=== PATIENT | male | born 1945 | race Caucasian/White ===

== ENCOUNTER 2023-09-13 11:43 | Emergency (ER) | payer MEDICARE, SELFPAY ==
[2023-09-13 12:03] VITALS: BP 95/60
[2023-09-13 12:49] LABS: ALT (SGPT) 43 U/L (0-50); AST (SGOT) 48 U/L (17-59); Albumin 4.2 g/dl (3.5-5.0); Alkaline Phosphatase 28 U/L (38-126); Blood Urea Nitrogen 13 mg/dl (9-20); Calcium 9.1 mg/dl (8.4-10.2); Carbon Dioxide 25 mmol/L (22-30); Chloride 95 mmol/L (98-107); Glucose 91 mg/dl (70-99); Potassium 5.2 mmol/L (3.5-5.1); Sodium 128 mmol/L (135-145); Total Bilirubin 0.9 mg/dl (0.2-1.3); Total Protein 6.9 g/dl (6.3-8.2); eGFR > 60.00
[2023-09-13 13:56] LABS: Urine Albumin Trace (Neg - Trace); Urine Bilirubin Negative (Negative); Urine Character Clear (Clear); Urine Color Yellow; Urine Glucose Negative (Negative); Urine Ketone 2+ (Negative); Urine Leukocyte Negative (Negative); Urine Nitrite Negative (Negative); Urine Occult Blood Negative (Negative); Urine Specific Gravity 1.015 (<1.030); Urine Urobilinogen Negative (Neg - 1+)
--- NOTE | 2023-09-13 15:13 | ED.GENMED ---
History of Present Illness
General
Chief Complaint: Abdominal Pain
Source: patient
Exam Limitations: none
Time Seen by Provider: 09/13/23 14:59
Nursing documentation reviewed up to this point in time: agreed with
Travel History
Have you had any contact with someone who has COVID-19?: No
Do you have any symptoms of coronavirus? Fever > 100 degrees, chills, cough, shortness of breath, sore throat, loss of taste or smell, muscle aches, or headache?: No
History of Present Illness
History of Present Illness:
Patient to ED with complaint of diarrhea x 1 week. States 2 weeks ago he sustained a fall. SKin injury to left elbow. He was seen at and placed on an antibiotic that 'begins with a C'. He took it for a few days and states his arm looked like
it was healing well so he stopped antibiotic a few days later over the weekend. The following weds he developed diarrhea. Denies fever/chills. nausea. No vomiting. Poor appetite. Feeling week. Brought to ED by spouse for eval. No prior
history of same.
Past History
Past History
ED Past Medical History: Arrthythmia (afib), COPD, GERD and Hypercholesterolemia
ED Past Surgical History: Tonsilectomy and Other (melanoma leg, lympnodes)
Social History
Alcohol: Occasional
Drug: None
Personal:
Living: with family
Review of Systems
Review of Systems
Allergies reviewed?: Yes
All Other Systems: ROS reviewed and negative except as documented in HPI and ROS
Constitutional: Reports no symptoms
EENT: Reports no symptoms
Respiratory: Reports no symptoms
Cardiac: Reports no symptoms
ABD/GI: Reports nausea, diarrhea and anorexia
: Reports no symptoms
Musculoskeletal: Reports no symptoms
Skin: Reports no symptoms
Neurological: Reports no symptoms
Psychiatric: Reports no symptoms
Phy Exam
General Physical Exam
General Presentation: well appearing and no apparent distress
General age: appears stated age
General Skin: warm and dry
General Habitus: normal
General Mental: alert
Cardiovascular Exam
Cardiovascular Exam: regular rate/rhythm
Gastrointestinal Exam
Gastrointestinal Exam: non tender, soft, no organomegaly, no pulsatile mass, non distended and no cva tenderness
Palpation: generalized: No tenderness
Auscultation of Abdomen: hyperactive
Musculoskeletal Exam
Musculoskeletal Exam: full ROM and neuro vasc intact
Skin Exam
Skin Exam: normal color, warm/dry and no rash
Psychiatric Exam
Psychiatric Exam: normal mood/affect
Course
Orders/Labs/Results
Orders:
Orders
09/13/23 12:25
CMP [Comprehensive Metabolic Panel] Urgent
09/13/23 13:34
Urinalysis Reflex To Culture Urgent
Date Specimen was Collected: 09/13/23
Time Specimen was Collected: 13:33
09/13/23 15:12
0.9% Sodium Chloride 1000 ml [Nss] 1,000 ml IV BOLUS
Ondansetron Injectable [Zofran] 4 mg IV NOW STA
09/13/23 15:20
Complete Blood Count/With Diff Urgent
Digoxin Urgent
09/13/23 16:39
CT Abd/pelvis W Iv Cont Urgent
Comment:
Reason For Exam: abd pain,nausea, diarrhea
Abnormal Lab Results
09/13/23 09/13/23 09/13/23
12:25 13:34 15:20
RBC 4.02 L 10^6/uL
(4.70-6.10)
Hct 38.5 L %
(39.0-52.0)
MCV 95.8 H fL
(80.0-94.0)
MCH 34.1 H pg
(27.0-31.0)
MPV 11.8 H fL
(7.4-10.4)
Abs Immat Gran (auto) 0.1 H 10^3/uL
(0-0.05)
Absolute Neuts (auto) 7.2 H 10^3/uL
(1.4-6.5)
Absolute Monos (auto) 1.4 H 10^3/uL
(0.1-0.6)
Lymphocytes % 14.0 L %
(20.5-51.1)
Monocytes % 13.8 H %
(1.7-9.3)
Sodium 128 L mmol/L
(135-145)
Potassium 5.2 H mmol/L
(3.5-5.1)
Chloride 95 L mmol/L
(98-107)
Alkaline Phosphatase 28 L U/L
(38-126)
Urine Ketones 2+ A
(Negative)
Digoxin 0.4 L ng/ml
(0.8-2.0)
09/13/23 15:20
09/13/23 12:25
Vital Signs
Initial and Last Documented VS:
Initial Vital Signs
Temp Pulse Resp BP Pulse Ox
98.5 F 90 16 95/60 97
09/13/23 12:03 09/13/23 12:03 09/13/23 12:03 09/13/23 12:03 09/13/23 12:03
Last Documented Vital Signs
Temp Pulse Resp BP Pulse Ox
98.5 F 90 16 95/60 97
09/13/23 12:03 09/13/23 12:03 09/13/23 12:03 09/13/23 12:03 09/13/23 12:03
*Radiology
Radiology exam reviewed: radiology read reviewed
*Pulse Oximetry
Patient hypoxic: no
*Critical Care Note
Total Time (30-74mins, 75-104mins- exclusive of procedures): Not Applicable
ED Attending Note
-
Portions of this chart may have been created with voice recognition software.� Occasional wrong word or��sound alike� substitutions may have occurred due to the inherent limitations of voice recognition software.
Discharge Plan
Departure
Patient Disposition: Home (Routine Discharge)
Date of Disposition: 09/13/23
Time of Disposition: 19:16
Patient with high blood pressure during this ER visit?: No
Condition: Good
Covid-19: Not Applicable
Discharge Problem:
Colitis
Instructions: Clear Liquid Diet, Colitis (DC)
Referrals:
Aileen Spann MD [Family Provider] - Follow up in 2-3 days
Activity Restrictions/Additional Instructions:
Return to the emergency department immediately for any changes in/worsening of your symptoms.
Interventions
Interventions:
*ED COVID-19 Vaccine History Last Done: 09/13/23 12:03
*Nursing Disposition Last Done: 09/13/23 19:58
[facility]-Pkb[facility]-Nvyeyfsjln Assessment Last Done: 09/13/23 16:19
Discharge Date and Time
Discharge Date/Time: 09/13/23 19:59
[2023-09-13] MEDS: NSS 1000 IV (15:23)
[2023-09-13] MEDS: ZOFRAN 4 MG IV (15:25)
[2023-09-13 15:29] LABS: % Basophils 0.4 % (0-2); % Immature Granulocytes 0.5 % (0-0.5); % Monocytes 13.8 % (1.7-9.3); % Neutrophils 71.3 % (42.2-75.2); Absolute Immature Granulocytes 0.1 10^3/uL (0-0.05); Absolute Lymphocytes 1.4 10^3/uL (1.2-3.4); Absolute Monocytes 1.4 10^3/uL (0.1-0.6); Absolute Neutrophils 7.2 10^3/uL (1.4-6.5); Hematocrit 38.5 % (39.0-52.0); Hemoglobin 13.7 g/dL (13.0-18.0); Mean Corp Hgb Conc. 35.6 g/dL (33.0-37.0); Mean Corpuscular Hgb 34.1 pg (27.0-31.0); Mean Corpuscular Volume 95.8 fL (80.0-94.0); Mean Platelet Volume 11.8 fL (7.4-10.4); Nucleated Red Blood Cells % 0 % (-); Platelet Count 180 10^3/uL (130-400); Red Blood Cell Count 4.02 10^6/uL (4.70-6.10); Red Cell Dist. Width 11.9 % (11.5-14.5)
[2023-09-13 16:18] LABS: Digoxin 0.4 ng/ml (0.8-2.0)
== END 2023-09-13 19:59 | disposition home or self-care (01) ==
LOC: EMR 11:43
PROVIDERS: Emergency Medicine; Nurse Practitioner; EMERGENCY PHYSICIAN Emergency Medicine; FAMILY PHYSICIAN Family Medicine
DX: K52.9 Noninfective gastroenteritis and colitis, unspecified (principal); R63.0 Anorexia; J44.9 Chronic obstructive pulmonary disease, unspecified; K21.9 Gastro-esophageal reflux disease without esophagitis; E78.00 Pure hypercholesterolemia, unspecified; I48.91 Unspecified atrial fibrillation; Z85.820 Personal history of malignant melanoma of skin; Z79.01 Long term (current) use of anticoagulants; Z91.81 History of falling
CPT/HCPCS: 99285; 96361; 96374; 74177; 80053; 80162; 81003; 85025; Q9967